=== PATIENT | female | born 1975 | race Caucasian/White ===

== ENCOUNTER 2016-07-08 08:59 | Emergency (ER) | payer BC ==
[~2016-07-08] VITALS: Ht 167.6 cm; Wt 63.5 kg
[2016-07-08] MEDS ORDERED: DEXAMETHASONE SOD PHOSPHATE 10 MG/ML VIAL ONE (09:30)
[2016-07-08] MEDS ORDERED: DEXAMETHASONE 1 MG TABLET PO ONE (10:00)
[2016-07-08 10:03] VITALS: BP 118/74
== END 2016-07-08 10:04 | disposition home or self-care (01) ==
LOC: ER 09:01
DX: T78.8XXA Other adverse effects, not elsewhere classified, initial encounter (principal); J45.909 Unspecified asthma, uncomplicated
CPT/HCPCS: 99283; A4606; J1100; Z7610